=== PATIENT | male | born 1950 | race African-American/Black ===

== ENCOUNTER 2017-04-07 20:06 | Inpatient (IN) | payer MEDICARE, BC ==
--- NOTE | 2017-04-07 20:33 | ED Physician Documentation ---
General Adult - HISTORIAN Historian: patient - HPI Chief Complaint: Cough/ Upper Respiratory Additional Information: Patient states that he has been doing fairly well until this AM when he developed some cough productive of some clear to yellow phlegm with some blood noted. Patient denies any fever but has had some chills. Patient has a history of asthma and has been having some increase dyspnea. Denies any chest pain. Appetite has been decreased some. No nausea or vomiting noted. No diarrhea. Patient denies any body aches. Has not had flue shot. No one else at home sick. Has diabetes and blood sugars have been stable. Has had some diaphoresis noted. Onset: days ago Timing: still present Severity: mild - ROS CONST: chills. denies: fever EYES/ENT: denies: nasal congestion CVS/RESP: shortness of breath (mild), cough. denies: chest pain GI/: none. denies: abdominal pain, problems urinating, vomiting, nausea, diarrhea MS/SKIN/LYMPH: leg swelling (mild). denies: calf pain, neck pain NEURO/PSYCH: denies: headache - PAST HX Past History: asthma, other (gout) Other History: diabetes Type 2 Immunizations: pneumovax. denies: influenza Allergies/Adverse Reactions: Allergies Allergy/AdvReac Type Severity Reaction Status Date / Time No Known Allergies Allergy Verified 04/07/17 21:35 Home Medications: Ambulatory Orders Medication Instructions Recorded Albuterol Sulfate [ProAir 1 puff INH Q6H 04/07/17 RespiClick] Allopurinol [Zyloprim] 300 mg PO DAILY 04/07/17 Atorvastatin Calcium 20 mg PO HS 04/07/17 Chlorthalidone [Thalitone] 25 mg PO DAILY 04/07/17 Fluticasone/Salmeterol [Advair 1 each INH BID 04/07/17 250-50 Diskus] Insulin Detemir [Levemir Flex-Pen] 10 unit SQ HS 04/07/17 Loratadine [Claritin] 10 mg PO DAILY 04/07/17 Metformin HCl [Glucophage] 1,000 [place] [address] 04/07/17 Omeprazole [Prilosec] 20 mg PO 0700 04/07/17 Sertraline HCl [Zoloft] 50 mg PO DAILY 04/07/17 Theophylline Anhydrous [John-Dur] 300 mg PO BID 04/07/17 amLODIPine BESYLATE [Norvasc] 10 mg PO 0900 04/07/17 - SOCIAL HX Smoking History: non-smoker Alcohol Use: none Drug Use: none - FAMILY HX Family History: No - REVIEWED ASSESSMENTS Nursing Assessment Reviewed: Yes Vitals Reviewed: Yes Progress - Progress Progress: 21:33 Patient states that he is feeling some better post HFN but is still SOB some. ED Results Lab/Radiology - Radiology Radiology Impressions: Chest 2 views Date of Exam: April 07, 2017. History: COUGH (Hx) / COUGH (DICOM Hx) / COUGH (Pt comments) Findings: No comparison studies are available. There is a right lower lobe infiltrate and pleural effusion. Left basilar atelectasis is present. There is borderline cardiomegaly. The trachea is midline and aortic arch contour is normal. Impression: Right lower lobe infiltrate and pleural effusion. General Adult Physical Exam - PHYSICAL EXAM GENERAL APPEARANCE: mild distress EENT: eye inspection normal, ENT inspection normal, pharyngeal erythema (mild), dry mucous membranes NECK: normal inspection, supple. No: lymphadenopathy RESPIRATORY: chest non-tender, rales, rhonchi CVS: reg rate & rhythm, heart sounds normal, equal pulses ABDOMEN: soft, no organomegaly, normal bowel sounds, no abdominal bruit, no distension, non-tender BACK: normal inspection SKIN: warm/dry, normal color EXTREMITIES: edema (1-2 plus) NEURO: oriented X3, CN's nml as tested, motor nml, sensation nml, mood/affect nml, cognition normal (slow) Discharge Clincal Impression: RLL pneumonia, Asthma, Diabetes type 2, controlled Condition: Stable Disposition: 09 ADMITTED INPATIENT Decision to Admit: [id number] Date of Decison to Admit: 04/07/17 Decision Time: 22:49
[2017-04-07] MEDS ORDERED: IPRATROPIUM/ALBUTEROL SULFATE 3 ML AMPUL.NEB NEB ONE (20:42)
[2017-04-07 20:51] LABS: MEAN CORPUSCULAR HEMOGLOBIN 26.9 pg (28.0-34.0); MEAN CORPUSCULAR VOLUME 81.5 fl (80.0-100.0)
[2017-04-07 21:20] LABS: eGFR (African) > 60; eGFR (Non-African) > 60
[2017-04-07] MEDS ORDERED: cefTRIAXone SODIUM 1 GM VIAL IV ONE (21:48)
[2017-04-07] MEDS: 0.9 % SODIUM CHLORIDE 1,000 ML IV SCH (22:30)
[2017-04-07] MEDS ORDERED: 0.9 % SODIUM CHLORIDE 100 ML IV ONE (22:36)
--- NOTE | 2017-04-07 22:43 | History and Physical Report ---
History of Present Illnes - History of Present Illness Reason for Visit: cough, dyspnea History of Present Illness: Patient is a 67-year-old [place]er male who states that he would doing well in the morning when he developed some productive call for some cleared to yellow phlegm associated with some home offices. Patient started having some shows that denied any fever. Patient denies any chest pain. Patient does having some increasing dyspnea and shortness of breath. Patient denied any bodyaches. Patient is not had a sore throat. Patient does have a history of asthma and has been using his inhaler a little bit more today than baseline. Patient subsequently came to the emergency room for evaluation. Any emergency room patient did drop is SAO2 down to 87-88% on room air. Patient was started on supplemental oxygen therapy was given a nebulization treatment with duoneb with some improvement. Chest x-ray did show a right lower lobe pneumonia. Patient did have a leukocytosis of 21,000. Patient did have a productive cough with some home offices. It was felt that the patient was developing a pneumonia. With his elevated white count and history of asthma and diabetes was felt that the patient would be best served by admission to the hospital. Patient was needing some supplemental oxygen in order to keep is that they were to greater than 90%. EKG showed AV disassociation but converted to NSR with 1st degree block. Patient was able to maintain BP and normal pulse. Patient was admitted to hospital for further evaluation. - Past Medical History Cardiac: HTN, Hyperlipidemia Pulmonary: Asthma Psych: Depression Endocrine: Diabetes (type 2), Other (gout) - Past Surgical History Past Surgical History: None - Past Social History Smoke: No Alcohol: None Drugs: None Lives: With Family - Health Maintenance Health Maintenance: Pneumococcal Vaccine. denies: Influenza Vaccine Influenza Vaccine: No Pneumonia Vaccine: Yes Resuscitation Status: Resusciation Status Resuscitation Status Full Code - Unable to Obtain History Unable to Obtain: No Review of Systems - Review of Systems Constitutional: Chills, Sweats, Weakness. negative: Fever Eyes: negative: pain, vision change ENT: negative: Ear Pain, Ear Discharge, Nose Pain, Nose Discharge, Nose Congestion, Mouth Pain, Throat Pain, Throat Swelling Respiratory: Cough, Shortness of Breath, Hemoptysis, SOB with Excertion, Sputum (green /cler). negative: Pleuritic Pain, Wheezing Cardiovascular: Edema (mild). negative: Chest Pain, Palpitations, Orthopnea Gastrointestinal: negative: Nausea, Vomiting, Abdominal Pain, Diarrhea, Constipation, Melena, Hematochezia Genitourinary: negative: Dysuria, Frequency, Incontinence, Hematuria Musculoskeletal: Back Pain Skin: negative: Rash Neurological: Weakness (generalized) - Medications/Allergies Allergies/Adverse Reactions: Allergies Allergy/AdvReac Type Severity Reaction Status Date / Time No Known Allergies Allergy Verified 04/07/17 21:35 Home Medications: Home Medications Albuterol Sulfate [ProAir RespiClick] 1 puff INH Q6H 04/07/17 Allopurinol [Zyloprim] 300 mg PO DAILY 04/07/17 Atorvastatin Calcium 20 mg PO HS 04/07/17 Chlorthalidone [Thalitone] 25 mg PO DAILY 04/07/17 Fluticasone/Salmeterol [Advair 250-50 Diskus] 1 each INH BID 04/07/17 Insulin Detemir [Levemir Flex-Pen] 10 unit SQ HS 04/07/17 Loratadine [Claritin] 10 mg PO DAILY 04/07/17 Metformin HCl [Glucophage] 1,[place] [address] 04/07/17 Omeprazole [Prilosec] 20 mg PO 0700 04/07/17 Sertraline HCl [Zoloft] 50 mg PO DAILY 04/07/17 Theophylline Anhydrous [John-Dur] 300 mg PO BID 04/07/17 amLODIPine BESYLATE [Norvasc] 10 mg PO 0900 04/07/17 Current Inpatient Medications: Current Inpatient Medications Albuterol/Ipratropium (Duoneb) 3 ml NEB Q4 [facility] Allopurinol (Zyloprim) 300 mg PO DAILY [facility] Amlodipine Besylate (Norvasc) 10 mg PO 0900 [facility] Atorvastatin Calcium (Lipitor) 40 mg PO HS [facility] Ceftriaxone Sodium (Rocephin) 1 gm IV QDAY [facility] Enoxaparin Sodium (Lovenox) 30 mg SQ QD [facility] Stop: 04/20/17 23:01 Hydrochlorothiazide (Hydrodiuril) 25 mg PO DAILY [facility] Azithromycin 500 mg/ Sodium (Chloride) 250 mls @ 125 mls/hr IV Q24H [facility] Stop: 04/12/17 21:59 Sodium Chloride (Normal Saline) 1,000 mls @ 100 mls/hr IV Q10H [facility] Insulin Detemir (Levemir Flex-Pen) 10 unit SQ HS [facility] Insulin Human Regular (Humulin R) 0 - 12 unit SQ CHEMX3 [facility] PRN Reason: Protocol Loratadine (Claritin) 10 mg PO DAILY [facility] Metformin HCl (Glucophage) 1,[place] [address] [facility] Miscellaneous (Chem Sticks) 1 each CHEMQID [facility] Omeprazole (Omeprazole) 20 mg PO 0700 [facility] Fluticasone/Salmeterol (Advair 250-50 Diskus) 1 each BID [facility] Sertraline HCl (Zoloft) 50 mg PO DAILY [facility] Exam - Exam General: Alert, Oriented to Person, Oriented to Place, Oriented to Time HEENT: Atraumatic, PERRLA, Dentition Normal, Hearing Grossly Normal. No: Mouth Mucous membr. moist/[place] (dry) Neck: Normal Range of Motion. No: Stridor, Lymphadenopathy (okay) Carotids: WNL Thyroid: WNL Lungs: Normal air movement, Speaks full Sentences, Respiratory Distress (mild), Wheezes (mild right posterior), Rhonchi (right). No: Prolonged Expiration Cardiovascular: Regular rate, Normal S1, Normal S2, No murmurs Abdomen: Normal bowel sounds, Soft, No tenderness, No hepatospenomegaly. No: Distended Integumentary: Normal, [place], Warm, Dry Extremities: No clubbing, No cyanosis, Other (edema 1-2 plus) Neurological: Normal speech, Strength Equal Bilat, Normal tone, Sensation intact , Cranial nerves 3-12 NL. No: Normal gait (slightly ataxic) Psych/Mental Status: Mental status NL, Mood NL, Appropriate Affect, Intact Judgment Assessment/Plan - Assessment/Plan (1) RLL pneumonia Status: Acute Qualifiers: Pneumonia type: due to unspecified organism Qualified Code(s): J18.1 - Lobar pneumonia, unspecified organism Assessment: Patient will be started on Rocephin and Azithromycin. Started on HFN treatments. Has been started on supplemental oxygen therapy. Will continue to monitor respiratory status. Will consider steroid therapy if wheezing gets worse. (2) Asthma Status: Chronic Qualifiers: Asthma severity: mild Asthma persistence: intermittent Comment: stable at this time, will monitor (3) Diabetes type 2, controlled Status: Chronic Qualifiers: Diabetes mellitus complication status: without complication Diabetes mellitus usp insulin use: with usp use Qualified Code(s): E11.9 - Type 2 diabetes mellitus without complications; Z79.4 - nursing home (current) use of insulin; Z79.4 - nursing home (current) use of insulin; Z79.4 - nursing home ( current) use of insulin; Z79.4 - nursing home (current) use of insulin Assessment: Will monitor blood sugars. Will continue with home medications. Patient has been started on sliding scale insulin (4) Hyperuricemia Status: Chronic Assessment: Check UA level, continue with home medication (5) Essential hypertension Status: Acute (6) Depression Status: Chronic (7) AV dissociation Status: Acute Assessment: converted to NSR with 1st AV block in ED VTE Assessment - RISK FACTOR SCORE VTE RISK FACTOR SCORES: AGE OVER 60 YEARS, ANTICIPATED BED CONFINEMENT OR IMMOBILIZATION > 24 HOURS - RISK VTE MODERATE RISK: SCORE OF 2 (RISK PROXIMAL DVT 2-4%) PROPHYAXIS NEEDED
[2017-04-07] MEDS: IBUPROFEN 400 MG TABLET PO PRN (22:58)
[2017-04-07] MEDS ORDERED: AZITHROMYCIN 500 MG in 0.9 % SODIUM CHLORIDE 250 ML IV SCH (23:00)
[2017-04-07] MEDS ORDERED: AZITHROMYCIN 250 MG in 0.9 % SODIUM CHLORIDE 250 ML IV SCH (23:00)
[2017-04-07] MEDS ORDERED: 0.9 % SODIUM CHLORIDE 250 ML IV ONE (23:40)
[2017-04-07] MEDS ORDERED: AZITHROMYCIN 500 MG VIAL IV ONE (23:41)
[2017-04-08 00:11] VITALS: BMI 44.9
[2017-04-08] MEDS ORDERED: POTASSIUM CHLORIDE 20 MEQ TABLET.ER PO ONE (00:11)
[2017-04-08] MEDS: AZITHROMYCIN 500 MG in 0.9 % SODIUM CHLORIDE 250 ML IV SCH ×2 (00:16→20:06)
[2017-04-08] MEDS: IPRATROPIUM/ALBUTEROL SULFATE 3 ML AMPUL.NEB NEB SCH ×7 (00:16→20:17)
[2017-04-08] MEDS: ENOXAPARIN SODIUM 30 MG/0.3 ML DISP.SYRIN SQ SCH ×2 (00:18→20:07)
[2017-04-08] MEDS: OMEPRAZOLE 20 MG CAPSULE.DR PO SCH ×2 (00:18→06:06)
[2017-04-08] MEDS: ALLOPURINOL 100 MG TABLET PO SCH ×2 (00:18→08:03)
[2017-04-08] MEDS ORDERED: 0.9 % SODIUM CHLORIDE 100 ML IV ONE (02:13)
--- NOTE | 2017-04-08 05:19 | Diagnostic Imaging Report ---
AUNG GRIFFIN [facility] [address] [facility] [address] [address] Report Submission Date: Apr 07, 2017 9:27:58 PM POWER PLANT ASSISTANT Patient Study Name: ELAINE DYE Date: Apr 07, 2017 9:07:37 PM POWER PLANT ASSISTANT Modality Type: CR Gender: M Description: CHEST : 54 Institution: [facility] Physician: AUNG GRIFFIN Chest 2 views Date of Exam: April 07, 2017. History: COUGH (Hx) / COUGH (DICOM Hx) / COUGH (Pt comments) Findings: No comparison studies are available. There is a right lower lobe infiltrate and pleural effusion. Left basilar atelectasis is present. There is borderline cardiomegaly. The trachea is midline and aortic arch contour is normal. Impression: Right lower lobe infiltrate and pleural effusion. Electronically signed on Apr 07, 2017 9:27:58 PM POWER PLANT ASSISTANT by: Ann ANDREWS
[2017-04-08 06:40] LABS: MONOCYTES % 1 % (0-11); SEGMENTED NEUTROPHILS % 77 % (39-79)
[2017-04-08 07:34] LABS: MEAN CORPUSCULAR HEMOGLOBIN 27.2 pg (28.0-34.0); MEAN CORPUSCULAR VOLUME 82.2 fl (80.0-100.0)
[2017-04-08] MEDS: FLUTICASONE/SALMETEROL 250-50 INHALER IH SCH ×2 (08:01→20:04)
[2017-04-08] MEDS: LORATADINE 10 MG TABLET PO SCH (08:02)
[2017-04-08] MEDS: HYDROCHLOROTHIAZIDE 25 MG TABLET PO SCH (08:03)
[2017-04-08] MEDS: POTASSIUM CHLORIDE 20 MEQ TABLET.ER PO SCH ×2 (08:03→20:05)
[2017-04-08] MEDS: SERTRALINE HCL 50 MG TABLET PO SCH (08:04)
[2017-04-08] MEDS: ACETAMINOPHEN 500 MG TABLET PO PRN ×2 (08:04→12:51)
[2017-04-08] MEDS: amLODIPine BESYLATE 5 MG TABLET PO SCH (08:12)
[2017-04-08 08:31] LABS: MONOCYTES % 2 % (0-11); SEGMENTED NEUTROPHILS % 74 % (39-79)
[2017-04-08 08:38] LABS: eGFR (African) > 60; eGFR (Non-African) 50
[2017-04-08] MEDS ORDERED: INSULIN NPH/REG 100 UNIT/ML 3ML VIAL SQ ONE (09:14)
[2017-04-08] MEDS: INSULIN REGULAR, HUMAN 100 UNIT/ML 3ML VIAL SQ SCH ×3 (09:16→16:47)
[2017-04-08] MEDS ORDERED: SALINE FLUSH 10 ML DISP.SYRIN IVF ONE (10:04)
[2017-04-08] MEDS: cefTRIAXone SODIUM 1 GM VIAL IV SCH (10:09)
[2017-04-08] MEDS: 0.9 % SODIUM CHLORIDE 1,000 ML IV SCH ×3 (10:09→20:06)
[2017-04-08] MEDS: ATORVASTATIN CALCIUM 80 MG TABLET PO SCH (20:05)
[2017-04-08] MEDS: INSULIN DETEMIR 100 UNIT/ML 3ML PEN.INJCTR SQ SCH (20:20)
[2017-04-09] MEDS: IPRATROPIUM/ALBUTEROL SULFATE 3 ML AMPUL.NEB NEB SCH ×6 (01:23→21:12)
[2017-04-09] MEDS: OMEPRAZOLE 20 MG CAPSULE.DR PO SCH (05:37)
[2017-04-09 06:39] LABS: MEAN CORPUSCULAR HEMOGLOBIN 27.1 pg (28.0-34.0); MEAN CORPUSCULAR VOLUME 81.4 fl (80.0-100.0)
[2017-04-09] MEDS ORDERED: SALINE FLUSH 10 ML DISP.SYRIN IVF ONE ×3 (06:56→22:02)
[2017-04-09] MEDS: 0.9 % SODIUM CHLORIDE 1,000 ML IV SCH ×2 (07:04→10:11)
--- NOTE | 2017-04-09 07:12 | Diagnostic Imaging Report ---
AUNG GRIFFIN [facility] [address] [facility] [address] [address] Report Submission Date: Apr 09, 2017 6:50:49 AM OPERATIONS INTELLIGENCE Patient Study Name: ELAINE DYE Date: Apr 09, 2017 6:31:41 AM OPERATIONS INTELLIGENCE Modality Type: CR Gender: M Description: CHEST : 54 Institution: [facility] Physician: AUNG GRIFFIN HISTORY: 67-year-old male with pneumonia. COMPARISON: Chest x-ray dated 04/07/2017 TECHNIQUE: 2 views of the chest were performed. FINDINGS: Right lung base opacity is re-identified, likely representing a combination of consolidation and effusion, mildly increased since the previous chest x-ray. There is mild left basilar infiltrate. No pneumothorax or pulmonary edema. The heart is borderline enlarged. There is a mild lower thoracic compression fracture. IMPRESSION: 1. Right basilar consolidation and/or effusion, mildly increased since the previous chest x-ray. 2. Left basilar mild infiltrate may represent pneumonia, atelectasis, and/or scarring. This is stable since the previous chest x-ray. Electronically signed on Apr 09, 2017 6:50:49 AM OPERATIONS INTELLIGENCE by: Jamar ANDREWS
[2017-04-09] MEDS: INSULIN REGULAR, HUMAN 100 UNIT/ML 3ML VIAL SQ SCH ×3 (07:39→16:40)
[2017-04-09 07:50] LABS: eGFR (African) > 60; eGFR (Non-African) 54
[2017-04-09] MEDS: ALLOPURINOL 100 MG TABLET PO SCH (10:07)
[2017-04-09] MEDS: LORATADINE 10 MG TABLET PO SCH (10:08)
[2017-04-09] MEDS: FLUTICASONE/SALMETEROL 250-50 INHALER IH SCH ×2 (10:08→21:57)
[2017-04-09] MEDS: POTASSIUM CHLORIDE 20 MEQ TABLET.ER PO SCH ×2 (10:09→21:57)
[2017-04-09] MEDS: HYDROCHLOROTHIAZIDE 25 MG TABLET PO SCH (10:09)
[2017-04-09] MEDS: amLODIPine BESYLATE 5 MG TABLET PO SCH (10:09)
[2017-04-09] MEDS: SERTRALINE HCL 50 MG TABLET PO SCH (10:10)
[2017-04-09] MEDS: cefTRIAXone SODIUM 1 GM VIAL IV SCH (10:16)
[2017-04-09 10:58] LABS: SEGMENTED NEUTROPHILS % 79 % (39-79)
[2017-04-09 10:59] LABS: EOSINOPHILS % 1 % (0-7); MONOCYTES % 2 % (0-11)
[2017-04-09] MEDS ORDERED: GUAIFENESIN/CODEINE 10 ML S/F LIQUID DOSE CUP PO PRN (13:07)
--- NOTE | 2017-04-09 14:49 | Inpatient Progress Note ---
Subjective - Required Recertification Statement I anticipate X number of days because-include discharge plan: 2 days - Review of Systems Events since last encounter: Patient states that he is been doing some better. Patient data the breathing has improved. Patient do complaints of some chest wall pain related to deep breathing. Patient believes it is related to his coughing that he is been having. Appetite had been good. Patient has had a low-grade fever earlier in the day. Patient denies any chills. General: Denies: Chills Pulmonary: Dyspnea, Cough, Pleuritic Chest Pain Gastrointestinal: Denies: Nausea, Vomiting Objective - Exam Vitals and I&O: Vital Signs Temp 98.7 F 04/09/17 09:11 Pulse 96 H 04/09/17 10:00 Resp 18 04/09/17 10:00 BP 103/67 04/09/17 09:11 Pulse Ox 92 04/09/17 09:11 Intake & Output 04/08/17 04/09/17 04/09/17 23:59 11:59 23:59 Intake Total 1140 320 Output Total 800 Balance 1140 -480 Weight 128.82 kg Intake: Oral 1140 320 Output: Urine 800 Other: Voiding Method Toilet General: Alert, Oriented to Person, Oriented to Place, Oriented to Time, Cooperative, No acute distress Neck: Supple Lungs: Normal air movement, Speaks full Sentences, Wheezes (mild with forced expiration), Rhonchi (few scattered bilat) Cardiovascular: Regular rate, Normal S1, Normal S2, No murmurs Abdomen: Normal bowel sounds, Soft Extremities: No clubbing, No cyanosis, No edema Skin: Normal, Warm, Dry Psych/Mental Status: Mental status NL, Mood NL, Intact Judgment - Results Results: Laboratory Results WBC 25.60 K/ul (4.00-12.00) H 04/09/17 06:05 RBC 4.38 M/ul (3.90-5.20) 04/09/17 06:05 Hgb 11.9 g/dL (12.0-18.0) L 04/09/17 06:05 Hct 35.7 % (37.0-53.0) L 04/09/17 06:05 MCV 81.4 fl (80.0-100.0) 04/09/17 06:05 MCH 27.1 pg (28.0-34.0) L 04/09/17 06:05 MCHC 33.3 g/dL (30.0-36.0) 04/09/17 06:05 RDW 14.0 % (11.3-14.3) 04/09/17 06:05 Plt Count 233 K/mm3 (130-400) 04/09/17 06:05 Neut % (Auto) Etiquette Coach 04/07/17 20:45 Lymph % (Auto) Etiquette Coach 04/07/17 20:45 [place] % (Auto) Etiquette Coach 04/07/17 20:45 Eos % (Auto) Etiquette Coach 04/07/17 20:45 Baso % (Auto) Etiquette Coach 04/07/17 20:45 Neut # (Auto) Etiquette Coach 04/07/17 20:45 Lymph # (Auto) Etiquette Coach 04/07/17 20:45 [place] # (Auto) Etiquette Coach 04/07/17 20:45 Eos # (Auto) Etiquette Coach 04/07/17 20:45 Baso # (Auto) Etiquette Coach 04/07/17 20:45 Seg Neutrophils % 79 % (39-79) 04/09/17 06:05 Band Neutrophils % 9 % (0-12) 04/09/17 06:05 Lymphocytes % 9 % (16-50) L 04/09/17 06:05 Reactive Lymphs % Etiquette Coach 04/07/17 20:45 Monocytes % 2 % (0-11) 04/09/17 06:05 Eosinophils % 1 % (0-7) 04/09/17 06:05 Metamyelocytes % 2 % (0-0) H 04/07/17 20:45 Reactive Lymphs # Etiquette Coach 04/07/17 20:45 Reactive Lymphocytes 2 % (0-5) 04/08/17 06:50 Plt Morphology Comment Normal (NORMAL) 04/09/17 06:05 RBC Morph Comment Normal (NORMAL) 04/09/17 06:05 Sodium 131 mmol/L (136-145) L 04/09/17 06:05 Potassium 3.3 mmol/L (3.5-5.1) L 04/09/17 06:05 Chloride 98 mmol/L (98-107) 04/09/17 06:05 Carbon Dioxide 24 mmol/L (22-30) 04/09/17 06:05 BUN 31 mg/dL (9-20) H 04/09/17 06:05 Creatinine 1.40 mg/dL (0.66-1.25) H 04/09/17 06:05 Estimated Creat Clear 95 04/09/17 06:05 Est GFR ( Amer) > 60 (60-) 04/09/17 06:05 Est GFR (Non-Af Amer) 54 (60-) L 04/09/17 06:05 Glucose 116 mg/dL (74-106) H 04/09/17 06:05 Estimat Average Glucose 140 mg/dL 04/07/17 22:51 Hemoglobin A1c 6.5 % (4.0-5.6) H 04/07/17 22:51 Lactate 1.6 U/L (0.7-2.1) 04/09/17 06:05 Uric Acid 5.7 mg/dL (3.5-8.5) 04/08/17 06:50 Calcium 8.1 mg/dL (8.4-10.2) L 04/09/17 06:05 Total Bilirubin 0.9 mg/dL (0.2-1.3) 04/09/17 06:05 AST 37 U/L (15-46) 04/09/17 06:05 ALT 40 U/L (13-69) 04/09/17 06:05 Alkaline Phosphatase 101 U/L (38-126) 04/09/17 06:05 Troponin I < 0.03 ng/mL (0.03-0.06) L 04/07/17 20:44 Total Protein 7.2 g/dL (6.3-8.2) 04/09/17 06:05 Albumin 3.4 g/dL (3.5-5.0) L 04/09/17 06:05 Assessment/Plan - Assessment/Plan (1) RLL pneumonia Status: Acute Current Visit: Yes Qualifiers: Pneumonia type: due to unspecified organism Qualified Code(s): J18.1 - Lobar pneumonia, unspecified organism Assessment: Patient clinically appeared to be improved at this time. Patient WBC count has increased slightly. Will continue with antibiotic therapy and nebulized treatment. Patient will be continued on supplemental oxygen therapy at this time. (2) Asthma Status: Chronic Current Visit: Yes Qualifiers: Asthma severity: mild Asthma persistence: intermittent Comment: stable at this time, will monitor Assessment: improve wheezing (3) Diabetes type 2, controlled Status: Chronic Current Visit: Yes Qualifiers: Diabetes mellitus complication status: without complication Diabetes mellitus shelter insulin use: with shelter use Qualified Code(s): E11.9 - Type 2 diabetes mellitus without complications; Z79.4 - [facility] (current) use of insulin; Z79.4 - parts counterman (current) use of insulin; Z79.4 - [facility] ( current) use of insulin; Z79.4 - parts counterman (current) use of insulin Assessment: Stable blood sugars have been running in the lower 100 range. (4) Essential hypertension Status: Acute Current Visit: Yes Assessment: Stable on home medications.
--- NOTE | 2017-04-09 14:54 | Inpatient Progress Note ---
Subjective - Required Recertification Statement I anticipate X number of days because-include discharge plan: 1 day - Review of Systems Events since last encounter: Patient states he continues to improve. Patient states it is able to ambulate better without as much shortness of breath dyspnea. Wheezing seem to be gone at this time. Patient states it is breathing seem to be close to baseline. Patient continues to have some bilateral lower chest wall discomfort with deep breathing. Patient states the pain is worse when he lays down. General: Denies: Chills Pulmonary: Dyspnea, Cough, Pleuritic Chest Pain Cardiovascular: Chest Pain Objective - Exam Vitals and I&O: Vital Signs Temp 98.7 F 04/09/17 09:11 Pulse 96 H 04/09/17 10:00 Resp 18 04/09/17 10:00 BP 103/67 04/09/17 09:11 Pulse Ox 92 04/09/17 09:11 Intake & Output 04/08/17 04/09/17 04/09/17 23:59 11:59 23:59 Intake Total 1140 320 Output Total 800 Balance 1140 -480 Weight 128.82 kg Intake: Oral 1140 320 Output: Urine 800 Other: Voiding Method Toilet General: Alert, Oriented to Person, Oriented to Place, Oriented to Time, Cooperative, No acute distress Neck: Supple, No JVD Lungs: Speaks full Sentences, Rales (RLL, improved) Cardiovascular: Regular rate, Normal S1, Normal S2, No murmurs Abdomen: Normal bowel sounds, Soft, No tenderness Extremities: No clubbing, No cyanosis, Other (trace edema) Skin: Normal, Warm, Dry Neurological: Normal gait, Normal speech, Strength Equal Bilat Psych/Mental Status: Mental status NL, Mood NL, Appropriate Affect, Intact Judgment - Results Results: Laboratory Results WBC 25.60 K/ul (4.00-12.00) H 04/09/17 06:05 RBC 4.38 M/ul (3.90-5.20) 04/09/17 06:05 Hgb 11.9 g/dL (12.0-18.0) L 04/09/17 06:05 Hct 35.7 % (37.0-53.0) L 04/09/17 06:05 MCV 81.4 fl (80.0-100.0) 04/09/17 06:05 MCH 27.1 pg (28.0-34.0) L 04/09/17 06:05 MCHC 33.3 g/dL (30.0-36.0) 04/09/17 06:05 RDW 14.0 % (11.3-14.3) 04/09/17 06:05 Plt Count 233 K/mm3 (130-400) 04/09/17 06:05 Neut % (Auto) Technical Support Representative 04/07/17 20:45 Lymph % (Auto) Technical Support Representative 04/07/17 20:45 [place] % (Auto) Technical Support Representative 04/07/17 20:45 Eos % (Auto) Technical Support Representative 04/07/17 20:45 Baso % (Auto) Technical Support Representative 04/07/17 20:45 Neut # (Auto) Technical Support Representative 04/07/17 20:45 Lymph # (Auto) Technical Support Representative 04/07/17 20:45 [place] # (Auto) Technical Support Representative 04/07/17 20:45 Eos # (Auto) Technical Support Representative 04/07/17 20:45 Baso # (Auto) Technical Support Representative 04/07/17 20:45 Seg Neutrophils % 79 % (39-79) 04/09/17 06:05 Band Neutrophils % 9 % (0-12) 04/09/17 06:05 Lymphocytes % 9 % (16-50) L 04/09/17 06:05 Reactive Lymphs % Technical Support Representative 04/07/17 20:45 Monocytes % 2 % (0-11) 04/09/17 06:05 Eosinophils % 1 % (0-7) 04/09/17 06:05 Metamyelocytes % 2 % (0-0) H 04/07/17 20:45 Reactive Lymphs # Technical Support Representative 04/07/17 20:45 Reactive Lymphocytes 2 % (0-5) 04/08/17 06:50 Plt Morphology Comment Normal (NORMAL) 04/09/17 06:05 RBC Morph Comment Normal (NORMAL) 04/09/17 06:05 Sodium 131 mmol/L (136-145) L 04/09/17 06:05 Potassium 3.3 mmol/L (3.5-5.1) L 04/09/17 06:05 Chloride 98 mmol/L (98-107) 04/09/17 06:05 Carbon Dioxide 24 mmol/L (22-30) 04/09/17 06:05 BUN 31 mg/dL (9-20) H 04/09/17 06:05 Creatinine 1.40 mg/dL (0.66-1.25) H 04/09/17 06:05 Estimated Creat Clear 95 04/09/17 06:05 Est GFR ( Amer) > 60 (60-) 04/09/17 06:05 Est GFR (Non-Af Amer) 54 (60-) L 04/09/17 06:05 Glucose 116 mg/dL (74-106) H 04/09/17 06:05 Estimat Average Glucose 140 mg/dL 04/07/17 22:51 Hemoglobin A1c 6.5 % (4.0-5.6) H 04/07/17 22:51 Lactate 1.6 U/L (0.7-2.1) 04/09/17 06:05 Uric Acid 5.7 mg/dL (3.5-8.5) 04/08/17 06:50 Calcium 8.1 mg/dL (8.4-10.2) L 04/09/17 06:05 Total Bilirubin 0.9 mg/dL (0.2-1.3) 04/09/17 06:05 AST 37 U/L (15-46) 04/09/17 06:05 ALT 40 U/L (13-69) 04/09/17 06:05 Alkaline Phosphatase 101 U/L (38-126) 04/09/17 06:05 Troponin I < 0.03 ng/mL (0.03-0.06) L 04/07/17 20:44 Total Protein 7.2 g/dL (6.3-8.2) 04/09/17 06:05 Albumin 3.4 g/dL (3.5-5.0) L 04/09/17 06:05 Assessment/Plan - Assessment/Plan (1) RLL pneumonia Status: Acute Current Visit: Yes Qualifiers: Pneumonia type: due to unspecified organism Qualified Code(s): J18.1 - Lobar pneumonia, unspecified organism Assessment: Appears to be improved. WBC remains elevated with left shift. CXR is stable. No leg pains noted. (2) Asthma Status: Chronic Current Visit: Yes Qualifiers: Asthma severity: mild Asthma persistence: intermittent Comment: stable at this time, will monitor Assessment: stable (3) Diabetes type 2, controlled Status: Chronic Current Visit: Yes Qualifiers: Diabetes mellitus complication status: without complication Diabetes mellitus assisted insulin use: with assisted use Qualified Code(s): E11.9 - Type 2 diabetes mellitus without complications; Z79.4 - snf (current) use of insulin; Z79.4 - terminal worker (current) use of insulin; Z79.4 - terminal worker ( current) use of insulin; Z79.4 - terminal worker (current) use of insulin Assessment: stable, blood sugars in the low 100 range. (4) Essential hypertension Status: Acute Current Visit: Yes Assessment: stable
[2017-04-09] MEDS: ENOXAPARIN SODIUM 30 MG/0.3 ML DISP.SYRIN SQ SCH (21:58)
[2017-04-09] MEDS: IBUPROFEN 400 MG TABLET PO PRN (22:04)
[2017-04-09] MEDS: ATORVASTATIN CALCIUM 80 MG TABLET PO SCH (22:04)
[2017-04-09] MEDS: AZITHROMYCIN 500 MG in 0.9 % SODIUM CHLORIDE 250 ML IV SCH (22:05)
[2017-04-09] MEDS: INSULIN DETEMIR 100 UNIT/ML 3ML PEN.INJCTR SQ SCH (22:05)
[2017-04-10] MEDS ORDERED: SALINE FLUSH 10 ML DISP.SYRIN IVF ONE (01:27)
[2017-04-10] MEDS: IPRATROPIUM/ALBUTEROL SULFATE 3 ML AMPUL.NEB NEB SCH ×4 (01:55→13:26)
[2017-04-10] MEDS: OMEPRAZOLE 20 MG CAPSULE.DR PO SCH (05:50)
[2017-04-10] MEDS ORDERED: SALINE FLUSH 10 ML DISP.SYRIN IV SCH (09:00)
[2017-04-10 09:08] LABS: eGFR (African) > 60; eGFR (Non-African) > 60
[2017-04-10 09:17] LABS: BASOPHILS % 0.3 (0.0-1.5); EOSINOPHILS % 0.8 % (0.0-6.8); MEAN CORPUSCULAR VOLUME 82.5 fl (80.0-100.0); MONOCYTES % 3.2 % (0.0-11.0); NEUTROPHILS # 17.9 # k/uL (1.4-7.7)
[2017-04-10] MEDS: INSULIN REGULAR, HUMAN 100 UNIT/ML 3ML VIAL SQ SCH ×2 (09:54→13:25)
[2017-04-10] MEDS: HYDROCHLOROTHIAZIDE 25 MG TABLET PO SCH (10:00)
[2017-04-10] MEDS: amLODIPine BESYLATE 5 MG TABLET PO SCH (10:00)
[2017-04-10] MEDS: ALLOPURINOL 100 MG TABLET PO SCH (10:00)
[2017-04-10] MEDS: FLUTICASONE/SALMETEROL 250-50 INHALER IH SCH (10:00)
[2017-04-10] MEDS: POTASSIUM CHLORIDE 20 MEQ TABLET.ER PO SCH (10:01)
[2017-04-10] MEDS: LORATADINE 10 MG TABLET PO SCH (10:01)
[2017-04-10] MEDS: SERTRALINE HCL 50 MG TABLET PO SCH (10:02)
[2017-04-10] MEDS ORDERED: 0.9 % SODIUM CHLORIDE 100 ML IV ONE (10:12)
--- NOTE | 2017-04-10 12:17 | Discharge Summary ---
Discharge Summary - Discharge Sumary History of Present Illness: Patient is a 67-year-old [place] male who states that he would doing well in the morning when he developed some productive call for some cleared to yellow phlegm associated with some home offices. Patient started having some shows that denied any fever. Patient denies any chest pain. Patient does having some increasing dyspnea and shortness of breath. Patient denied any bodyaches. Patient is not had a sore throat. Patient does have a history of asthma and has been using his inhaler a little bit more today than baseline. Patient subsequently came to the emergency room for evaluation. Any emergency room patient did drop is SAO2 down to 87-88% on room air. Patient was started on supplemental oxygen therapy was given a nebulization treatment with duoneb with some improvement. Chest x-ray did show a right lower lobe pneumonia. Patient did have a leukocytosis of 21,000. Patient did have a productive cough with some home offices. It was felt that the patient was developing a pneumonia. With his elevated white count and history of asthma and diabetes was felt that the patient would be best served by admission to the hospital. Patient was needing some supplemental oxygen in order to keep is that they were to greater than 90%. EKG showed AV disassociation but converted to NSR with 1st degree block. Patient was able to maintain BP and normal pulse. Patient was admitted to hospital for further evaluation. Home Medications: Ambulatory Orders Medication Instructions Recorded Albuterol Sulfate [ProAir 1 puff INH Q6H 04/07/17 RespiClick] Allopurinol [Zyloprim] 300 mg PO DAILY 04/07/17 Atorvastatin Calcium 20 mg PO HS 04/07/17 Chlorthalidone [Thalitone] 25 mg PO DAILY 04/07/17 Fluticasone/Salmeterol [Advair 1 each INH BID 04/07/17 250-50 Diskus] Insulin Detemir [Levemir Flex-Pen] 10 unit SQ HS 04/07/17 Loratadine [Claritin] 10 mg PO DAILY 04/07/17 Metformin HCl [Glucophage] 1,000 [place] [address] 04/07/17 Omeprazole [Prilosec] 20 mg PO 0700 04/07/17 Sertraline HCl [Zoloft] 50 mg PO DAILY 04/07/17 Theophylline Anhydrous [John-Dur] 300 mg PO BID 04/07/17 amLODIPine BESYLATE [Norvasc] 10 mg PO 0900 04/07/17 Azithromycin [Zithromax] 250 mg PO DAILY #3 tablet 04/10/17 Cefdinir 300 mg PO BID #14 capsule 04/10/17 Furosemide [Lasix] 20 mg PO DAILY #5 tablet 04/10/17 Potassium Chloride [Klor-Con M20] 20 meq PO BID #10 tablet.er 04/10/17 Allergies/Adverse Reactions: Allergies Allergy/AdvReac Type Severity Reaction Status Date / Time No Known Allergies Allergy Verified 04/07/17 21:35 Discharge Summary: Patient was started on Azithromycin and Rocephin for antibiotic therapy, HFN with duoneb and steroid treatment. During the hospitalization his WBC count did remain elevated but at discharge he nolanger had a left shift. Patient's breathing status did improve. Chest x-ray remained stable to improved. Cough improved and patient's oxygenation improved to 94% on RA. It did drop with exercise to the mid 80s. Patient was started on sliding scale insulin for diabetes and this remained stable. Patient did have AV disassociation on EKG in the ED. Patient's pulse and BP remain within normal range. This did convert to a NSR with 1st degree AV block and remained there during hospitalization. Patient denied any episodes of syncope or near syncope. Hgb did drop from 13.9 to 10.9, felt to be delutional related to IV fluids. Patient was hypokalemic on admission and started on supplemental K. At discharge K was 3.2. Flu screen was negative. At the time of discharge patient felt that he could manage at home, he was breathing better. He was encouraged to use oxygen at night and when exerting him self. - Final Diagnosis (1) RLL pneumonia Problems: improved (2) Asthma Problems: improved (3) Diabetes type 2, controlled Problems: stable (4) Essential hypertension Problems: stable (5) AV dissociation Problems: converted to NSR with 1st degree AV block
[2017-04-10 14:22] VITALS: BP 122/70
== END 2017-04-10 15:00 | disposition home or self-care (01) | DRG 194 ==
LOC: ED 20:06 → SOUTH 22:21
PROVIDERS: ADMIT Family Medicine; ATTEND Family Medicine
DX: J18.1 Lobar pneumonia, unspecified organism (principal); I45.89 Other specified conduction disorders; E11.9 Type 2 diabetes mellitus without complications; J45.909 Unspecified asthma, uncomplicated; Z79.4 Long term (current) use of insulin; E79.0 Hyperuricemia without signs of inflammatory arthritis and tophaceous disease; E87.6 Hypokalemia; I10 Essential (primary) hypertension; F32.9 Major depressive disorder, single episode, unspecified
CPT/HCPCS: 36415; 71020; 80048; 80053; 83036; 83605; 84484; 84550; 85025; 87040; 87070; 87186; 87400; 93005; A9270; J0456; J0696; J1650; J1815; J7030; J7050; 94640; 96365; 99222; 99232; 99238; 99284; S1016